=== PATIENT | female | born 1995 | race Caucasian/White ===

== ENCOUNTER 2019-05-23 17:49 | Emergency (ER) | payer SELFPAY ==
[~2019-05-23] VITALS: Ht 165.1 cm; Wt 76.0 kg
[2019-05-23 17:53] VITALS: BP 110/57
== END 2019-05-24 01:27 | disposition left against medical advice (07) ==
LOC: ER 17:49
DX: F41.9 Anxiety disorder, unspecified (principal); Z53.21 Procedure and treatment not carried out due to patient leaving prior to being seen by health care provider